=== PATIENT | female | born 1995 | race African-American/Black ===

== ENCOUNTER 2019-07-21 14:30 | Emergency (ER) | payer OTHER, MEDICAID ==
[~2019-07-21] VITALS: Ht 175.3 cm; Wt 75.0 kg
[2019-07-21 14:33] VITALS: BP 128/82
--- NOTE | 2019-07-21 14:46 | NUR ---
PT BIB EMS FOR TRIPPING AND FALLING. PT STATES SHE PASSED OUT AFTER. DENIES ANY INJURY, JUST ABRASIONS TO KNEES AND ELBOW.
[2019-07-21] MEDS ORDERED: NEOSPORIN OINT. PKT 1 PACKET ONE (14:49)
[2019-07-21] MEDS ORDERED: PLEASE ENTER HEIGHT AND WEIGHT MC SCH (15:00)
[2019-07-21] MEDS ORDERED: L.E.T SOLUTION TP ONE (15:00)
[2019-07-21 15:16] LABS: BASOPHILS # (AUTO) 0.04 x10^3/uL (0-0.1); BASOPHILS % (AUTO) 1 % (0-1); EOSINOPHILS # (AUTO) 0.14 x10^3/uL (0-0.4); EOSINOPHILS % (AUTO) 2 % (1-7); LYMPHOCYTES # (AUTO) 1.68 x10^3/uL (1-3.4); LYMPHOCYTES % (AUTO) 23 % (22-44); MD NO; MEAN CORPUSCULAR HEMOGLOBIN 26.3 pg (27.0-34.8); MEAN CORPUSCULAR HGB CONC 31.1 g/dL (32.4-35.8); MEAN CORPUSCULAR VOLUME 84.5 fL (80-100); MEAN PLATELET VOLUME 8.9 fL (7.4-10.4); MONOCYTES % (AUTO) 11 % (2-9); NEUTROPHILS % (AUTO) 63 % (42-75); PLATELET COUNT 304 x10^3/uL (130-400); RED BLOOD COUNT 4.53 x10^6/uL (3.82-5.3); RED CELL DISTRIBUTION WIDTH 14.6 % (9.6-15.2)
--- NOTE | 2019-07-21 15:42 | NUR ---
CARE FOR DC ONLY PROVIDED. PT LAYING ON GURNEY, NO ACUTE DISTRESS NOTED. NO IV TO DC. REVIEWED DC INSTRUCTIONS WITH PT. UNDERSTANDING VERBALIZED. PT LEFT AMB, GAIT STEADY.
== END 2019-07-21 15:45 | disposition home or self-care (01) ==
LOC: ED 15:00
DX: S80.211A Abrasion, right knee, initial encounter (principal); S80.212A Abrasion, left knee, initial encounter; S50.312A Abrasion of left elbow, initial encounter; S60.512A Abrasion of left hand, initial encounter; R55 Syncope and collapse; W01.0XXA Fall on same level from slipping, tripping and stumbling without subsequent striking against object, initial encounter; Y93.89 Activity, other specified; Y92.89 Other specified places as the place of occurrence of the external cause; Y99.8 Other external cause status
CPT/HCPCS: 36415; 84703; 85025; 93005; 99284